=== PATIENT | female | born 1985 | race American Indian/Alaskan Native ===

== ENCOUNTER 2017-05-05 01:48 | Emergency (ER) | payer OTHER ==
[2017-05-05] MEDS ORDERED: ULTRAM PO ONE (04:20)
[2017-05-05] MEDS ORDERED: ULTRAM ONE (04:24)
[2017-05-05 05:42] VITALS: BP 192/99
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
[2017-05-05] MEDS ORDERED: MOTRIN PO ONE (08:34)
== END 2017-05-05 08:47 | disposition home or self-care (01) ==
LOC: ED 01:48
DX: M54.2 Cervicalgia (principal); M54.89 Other dorsalgia; I10 Essential (primary) hypertension; G43.909 Migraine, unspecified, not intractable, without status migrainosus
CPT/HCPCS: 72040; 81025; 99284

== ENCOUNTER 2017-08-08 20:32 | Emergency (ER) | payer OTHER | END 2017-08-08 21:21 | disposition home or self-care (01) | LOC: ED 20:32 | DX: M79.674 Pain in right toe(s) (principal); Z53.21 Procedure and treatment not carried out due to patient leaving prior to being seen by health care provider ==

== ENCOUNTER 2017-08-19 23:37 | Emergency (ER) | payer OTHER ==
[2017-08-20 01:17] VITALS: BP 197/85
[2017-08-20] MEDS ORDERED: ULTRAM ONE (01:20)
[2017-08-20] MEDS ORDERED: ULTRAM PO ONE (01:26)
[2017-08-20 02:38] LABS: HCG Qualitative,Urine Negative (Negative)
--- NOTE | 2017-08-20 03:53 | Cat Scan Report ---
FINAL REPORT EXAM: CT CERVICAL SPINE W/O CONTRAST HISTORY: Neck pain. TECHNIQUE: Unenhanced axial CT images of the cervical spine were obtained. Coronal and sagittal reformatted images were also obtained. Comparison is made with prior plain radiographs 05/05/2017. FINDINGS: The cervical vertebral bodies demonstrate normal height and morphology. There is straightening of the normal cervical lordosis, which is nonspecific and may be due to patient positioning and/or muscle spasm. Note that a similar finding was seen on prior radiographs 05/05/2017. There is no fracture or spondylolisthesis. The prevertebral soft tissues are unremarkable. The intervertebral disc heights are maintained. There is suggestion of minimal diffuse disc bulging at C4-5, without central stenosis or neural foraminal narrowing. The remainder of the cervical levels are within normal limits, without disc bulge, herniation, central stenosis, or neural foraminal narrowing. No discrete mass or nodule is seen in the thyroid gland. The visualized lung apices are clear. There are multiple small lymph nodes scattered within the bilateral cervical chains, measuring up to 6-7 mm in maximal short axis, which do not meet size criteria for pathologic enlargement. IMPRESSION: 1. Nonspecific straightening, which may be due to patient positioning and/or muscle spasm, also seen on prior study 05/05/2017. 2. No fracture or spondylolisthesis.
== END 2017-08-20 02:00 | disposition left against medical advice (07) ==
LOC: ED 23:37
DX: M54.2 Cervicalgia (principal); Z53.21 Procedure and treatment not carried out due to patient leaving prior to being seen by health care provider
CPT/HCPCS: 72125; 81025